=== PATIENT | female | born 1990 | race American Indian/Alaskan Native ===

== ENCOUNTER 2018-02-23 11:45 | Outpatient (CLI) | payer OTHER | END 2018-02-23 11:46 | disposition home or self-care (01) | LOC: PF 11:45 | PROVIDERS: ATTEND Internal Medicine | DX: J45.909 Unspecified asthma, uncomplicated (principal); F32.9 Major depressive disorder, single episode, unspecified; M54.9 Dorsalgia, unspecified; M79.643 Pain in unspecified hand; M79.606 Pain in leg, unspecified; M79.673 Pain in unspecified foot | CPT/HCPCS: 94010 ==